=== PATIENT | male | born 1950 | race Caucasian/White ===

== ENCOUNTER 2024-09-07 12:32 | Outpatient (CLI) | payer MEDICARE ==
[2024-09-07 13:40] LABS: Calc. Creatinine Clearance 0.0 mL/min (70-130)
== END 2024-09-07 12:33 | disposition home or self-care (01) ==
LOC: NAV CT 12:32
PROVIDERS: ATTEND Family Medicine
DX: G44.201 Tension-type headache, unspecified, intractable (principal); H53.8 Other visual disturbances
CPT/HCPCS: 36415; 70450; 82565